=== PATIENT | male | born 1980 | race African-American/Black ===

== ENCOUNTER 2016-10-07 19:55 | Emergency (ER) | payer OTHER ==
[~2016-10-07] VITALS: Ht 177.8 cm; Wt 66.7 kg
[~2016-10-07 19:55] MED LIST: GENTAMYCIN OS; LORTAB 5/500 TA1 TA1 PO; VICODIN PO
[2016-10-07 20:14] LABS: BASOPHIL% 0.7 % (0-2.5); EOSINOPHIL% 0.4 % (0.0-7.0); HEMATOCRIT 39.9 % (38.0-50.0); HEMOGLOBIN 13.3 gm/dL (13.0-16.0); LYMPHOCYTE# 1.9 X10e3 (1.0-3.5); LYMPHOCYTE% 40.3 % (17.0-45.0); MEAN CELL VOLUME 86.9 FL (83-96); MEAN CORPUSCULAR HEMOGLOBIN 28.9 PG (28-34); MEAN CORPUSCULAR HGB CONC 33.3 g/dL (30-36); MEAN PLATELET VOLUME 7.7 FL (6.5-11.5); MONOCYTE# 0.4 X10e3 (0-1.0); MONOCYTE% 7.5 % (3.0-12.0); NEUTROPHIL# 2.5 X10e3 (1.5-7.1); NEUTROPHIL% 51.1 % (40-75); PLATELET COUNT 246 X10e3 (140-420); RED BLOOD COUNT 4.59 X10e (3.90-5.60); RED CELL DISTRIBUTION WIDTH 12.6 % (11.0-15.5); WHITE BLOOD COUNT 4.8 X10e3 (4.0-10.5)
[2016-10-07 20:19] LABS: DIFF IND NO
[2016-10-07 20:39] LABS: ALBUMIN SERUM 4.2 g/dL (3.5-5.0); ALKALINE PHOSPHATASE 46 U/L (32-92); ALT (SGPT) 25 U/L (10-40); AST (SGOT) 23 U/L (10-42); BILIRUBIN, DIRECT 0.1 mg/dL (0.0-0.2); BILIRUBIN,INDIRECT 1.1 mg/dL (0.0-0.9); BILIRUBIN,TOTAL 1.2 mg/dL (0.2-2.0); BLOOD UREA NITROGEN 15 mg/dL (9-23); BUN/CREATININE RATIO 13.63; CALCIUM SERUM 8.8 mg/dL (8.4-10.2); CARBON DIOXIDE 25 mmol/L (22-31); CHLORIDE 106 mmol/L (100-111); CREATININE SERUM 1.1 mg/dL (0.6-1.4); GLOM FILT RATE Estimated 100.3 mL/min (>60); GLUCOSE FASTING 224 mg/dL (70-110); POTASSIUM 3.6 mmol/L (3.5-5.1); PROTEIN TOTAL SERUM 7.4 g/dL (6.0-8.3); SALICYLATE <4.0 mg/dL; SODIUM 140 mmol/L (135-145)
[2016-10-07 20:40] LABS: ACETAMINOPHEN <10 ug/mL; ALCOHOL BLOOD <5 mg/dL (0)
[2016-10-07 21:06] LABS: AMPHETAMINE NEG (NEG); BARBITURATES NEG (NEG); BENZODIAZEPINES POS (NEG); COCAINE NEG (NEG); MARIJUANA POS (NEG); OPIATES POS (NEG); TRICYCLIC ANTIDEPRESSANTS NEG (NEG); U METHADONE NEG (NEG)
[2016-10-08 01:04] LABS: SALICYLATE <4.0 mg/dL
[2016-10-08 01:07] LABS: ACETAMINOPHEN <10 ug/mL
[2016-10-08] MEDS ORDERED: XANAX1 MG PO (18:36)
== END 2016-10-08 01:40 | disposition home or self-care (01) ==
LOC: CED 19:55
PROVIDERS: Emergency Medicine
DX: T42.4X1A Poisoning by benzodiazepines, accidental (unintentional), initial encounter (principal); T40.2X1A Poisoning by other opioids, accidental (unintentional), initial encounter
CPT/HCPCS: 36415; 51701; 80048; 80076; 80307; 82947; 85025; 96360; 96361; 99284; G0480

== ENCOUNTER 2016-10-08 10:48 | Inpatient (IN) | payer OTHER ==
[~2016-10-08] VITALS: Ht 172.7 cm; Wt 78.5 kg
--- NOTE | ~2016-10-08 | EKG ---
PATIENT: MARVIN TOLENTINO UNIT #: [id number] Ventricular Rate: 133 BPM Atrial Rate: 133 BPM P-R Interval: 170 ms QRS Duration: 80 ms Q-T Interval: 276 ms QTC Calculation(Bezet): 410 ms P [place] Level: 71 degrees Calculated R [place] Level: 95 degrees Calculated T [place] Level: 75 degrees Diagnosis Line: Sinus tachycardia Diagnosis Line: Rightward axis Diagnosis Line: Borderline ECG Diagnosis Line: When compared with ECG of 08-OCT-2016 11:22, Diagnosis Line: (unconfirmed) Diagnosis Line: Vent. rate has increased BY 52 BPM Diagnosis Line: Questionable change in QRS duration Diagnosis Line: Confirmed by SAVI GALLARDO MD ([id number]) on 10/12/2016 Diagnosis Line: 7:39:59 AM INTERPRETING MD: PAULINA CADET
--- NOTE | ~2016-10-08 | EKG ---
PATIENT: MARVIN TOLENTINO UNIT #: [id number] Ventricular Rate: 89 BPM Atrial Rate: 89 BPM P-R Interval: 206 ms QRS Duration: 80 ms Q-T Interval: 328 ms QTC Calculation(Bezet): 399 ms P [place]: 73 degrees Calculated R [place]: 91 degrees Calculated T [place]: 63 degrees Diagnosis Line: Normal sinus rhythm Diagnosis Line: Rightward axis Diagnosis Line: Nonspecific ST and T wave abnormality Diagnosis Line: Abnormal ECG Diagnosis Line: When compared with ECG of 08-OCT-2016 15:52, Diagnosis Line: (unconfirmed) Diagnosis Line: Vent. rate has decreased BY 44 BPM Diagnosis Line: Nonspecific T wave abnormality now evident in Diagnosis Line: Inferior leads Diagnosis Line: Nonspecific T wave abnormality, worse in Diagnosis Line: Anterolateral leads Diagnosis Line: Confirmed by SAVI GALLARDO MD ([id number]) on 10/12/2016 Diagnosis Line: 7:47:06 AM INTERPRETING MD: PAULINA CADET
--- NOTE | ~2016-10-08 | CR72 ---
[facility] A Service of [facility] RADIOLOGY TEXT RESULTS PATIENT: MARVIN TOLENTINO LOCATION: [address] : 81 UNIT #: [id number] AGE: [address]: CASH ISABEL V SEX: M ORDER DR: [id number] [facility] [address] [facility]. [place], [place] [address] [id number] I MR#: [id number] Acc #: [id number] NAME: MARVIN TOLENTINO : 1980 SEX: M STUDY DATE/TIME: 10/12/2016 2:36 UNIT: [facility] ROOM: [facility] STUDY DESCRIPTION: CR Chest Single View Portable Attending Physician: Cash Isabel M.D. Ordering Physician: Destiny Mcgowan M.D. Primary Care Physician: No Primary Care Physician MEDICAL IMAGING REPORT This report is preliminary unless electronic signature is present EXAMINATION AP portable chest. DATE 10/12/2016 at 02:36. HISTORY Overdose, respiratory failure requiring ventilator. Symptoms began 10/08/2016. Resuscitated arrest. COMPARISON AP portable chest, 10/11/2016. FINDINGS ET tube, right IJ central line, left neck approach dual-lumen catheter; each appear unchanged. No visible pneumothorax. Dense right uxr-hd-jyqva lung zone airspace disease and left infrahilar infiltrates, not thought to be significantly changed. There may be small layering right pleural effusion as well. No visible pneumothorax. Heart size is stable. IMPRESSION 1. Dense right rui-do-sjszk lung zone and left infrahilar airspace disease with probable small layering right pleural effusion. 2. Supporting lines and tubes are stable. 3. No significant change from 10/11/2016. Dictated by... Vivienne Mack M.D. THIS IS AN ELECTRONICALLY VERIFIED REPORT Vivienne Mack M.D. at 10/12/2016 9:55 PM LLH/luis [facility] A Service of [facility] RADIOLOGY TEXT RESULTS PATIENT: MARVIN TOLENTINO LOCATION: [facility]IC[facility]3-23 : 81 UNIT #: [id number] AGE: [address]: CASH ISABEL V SEX: M ORDER DR: TD: 10/12/2016 06:16 JOB #: [id number] MEDICAL IMAGING REPORT Page 1 of 1 COPY
--- NOTE | ~2016-10-08 | FU ---
[facility] Nutrition Therapy DATE: 10/12/16 Patient: MARVIN TOLENTINO Physician: [email or web address] Address: [address] Room/Bed: [address], Zip: [place] [address] Admit Date: 10/08/16 Date of : [birth year] Height: 5 8 Weight: 180 82 NUTRITION MONITORING/FOLLOW-UP: Reason: Nutrition follow up Anthropometrics: Ht: 5'8" Wt: 78 kg BMI: 26.1 Wt 8/2: 82 kg Labs: BUN 5 Alb 2.0 AST 349 ALT 593 Phos 1.8 Meds: NaCl, calcium gluconate, sodium phosphate, MgSO4, KCl, bumex, protonix, D5%, sodium bicarbonate, levophed I&O's: 8127/7170, last BM 10/09 Skin: No breakdown noted Edema: Generalized- BUE/ hands/ hips/ trunk/ penis/ scrotum 2+ pedal/ ankle Estimated Nutrition Needs: 4443-4036 kcals (25-30 kcals/kg) 117-156 grams protein (1.5-2.0 grams/kg) Protein needs increased d/t pt now on CRRT Assessment: Chart reviewed, events noted. Pt remains intubated on pressors in the ICU, now on CRRT. Pt will likely have a brain perfusion scan today per RN report. No plans for nutrition support at this time; however, RN reports that DHT may be placed today. Please see recommendations below. Dx: Inadequate protein-energy intake RT ventilator dependence, clinical condition AEB NPO status- ACTIVE Intervention: 1. Enteral nutrition once medically feasible Monitoring, Evaluation and Goals: 1. Enteral nutrition; initiate, provide >80% goal volume- NOT MET 2. Improve labs; Na+, K+, Cl-, BUN, creat, AST, ALT- IMPROVED/ IN PROGRESS NEW GOALS: 1. Improve labs; AST, ALT, Phos 2. Weight/ Fluid status; monitor edema, preserve lean body mass [facility] Nutrition Therapy DATE: 10/12/16 Patient: MARVIN TOLENTINO Physician: [email or web address] Address: [address] [facility] Room/Bed: [address], Zip: [place] [address] Admit Date: 10/08/16 Date of : [birth year] Height: 5 8 Weight: 180 82 Recommendations: 1. Replete phos to WNL PRN. 2. Once medically feasible and if deemed appropriate per MD, consider initiating enteral nutrition with Jevity 1.5 @ 25 mL/hr + 30 mL Prostat TID. Increase by 10 mL q 8 hrs as tolerated to goal of 55 mL/hr + 30 mL Prostat TID to provide: 2280 kcals/ 129 grams protein/ 1003 mL free H20 Status: Pt is at moderate-severe nutritional risk. RD will continue to follow hospital course. Respectfully, KRISTY LILLY RD, LD [facility] cc: client file
--- NOTE | ~2016-10-08 | CR72 ---
[facility] A Service of [facility] & [facility] RADIOLOGY TEXT RESULTS PATIENT: MARVIN TOLENTINO LOCATION: [address] : 81 UNIT #: [id number] AGE: [address]: CASH ISABEL V SEX: M ORDER DR: [id number] [facility] [address] [facility]. [place], [place] [address] [id number] I MR#: [id number] Acc #: [id number] NAME: MARVIN TOLENTINO : 1980 SEX: M STUDY DATE/TIME: 10/11/2016 09:28 UNIT: [facility] ROOM: [facility] STUDY DESCRIPTION: CR Chest Single View Portable Attending Physician: Cash Isabel M.D. Ordering Physician: Destiny Mcgowan M.D. Primary Care Physician: Primary Care Physician No MEDICAL IMAGING REPORT This report is preliminary unless electronic signature is present EXAM Chest 10/11/2016 0928 hours HISTORY 36-year-old with history with overdose, resuscitated post arrest with respiratory failure requiring ventilation. Followup. Episode occurred 10/08/2016. COMPARISON 10/10/2016. FINDINGS Portable upright chest demonstrates bilateral airspace changes right greater than left perhaps slightly improved on the left. There is increasing density at the right base which could represent new pleural fluid. There is an endotracheal tube with tip 5 cm above the jurgen. Right IJ catheter tip is in the SVC. There is a new left central dual-lumen catheter with tips in the SVC just above the right atrium. There is no pneumothorax. IMPRESSION 1. Stable endotracheal tube and right IJ catheter. There is a new left central venous dual-lumen catheter with tips in the SVC above the right atrium. There is no pneumothorax. 2. There is persistent airspace change right greater than left lung with increasing right basilar density which could represent worsening airspace density or developing pleural fluid. This is new from 10/10/2016. STAT * RESULT [facility] A Service of [facility] & [facility] RADIOLOGY TEXT RESULTS PATIENT: MARVIN TOLENTINO LOCATION: CIC3 CICCU3-23 : 81 UNIT #: [id number] AGE: [address]: CHALOCASH V SEX: M ORDER DR: Dictated by... Laya Jacinto M.D. THIS IS AN ELECTRONICALLY VERIFIED REPORT Laya Jacinto M.D. at 10/11/2016 2:31 PM LOI/braydon TD: 10/11/2016 10:15 JOB #: [id number] MEDICAL IMAGING REPORT Page 1 of 1 COPY
--- NOTE | ~2016-10-08 | CR72 ---
[facility] A Service of [facility] RADIOLOGY TEXT RESULTS PATIENT: MARVIN TOLENTINO LOCATION: [address]23 : 81 UNIT #: [id number] AGE: [address]: ELLE MCGOWAN MD SEX: M ORDER DR: [id number] [facility] [address] [facility]. [place], [place] [address] [id number] I MR#: [id number] Acc #: [id number] NAME: MARVIN TOLENTINO : 1980 SEX: M STUDY DATE/TIME: 10/08/2016 15:07 UNIT: [facility] ROOM: [facility] STUDY DESCRIPTION: CR Chest Single View Portable Attending Physician: Elle Mcgowan M.D. Ordering Physician: Suman Anthony M.D. Primary Care Physician: No Primary Care Physician MEDICAL IMAGING REPORT This report is preliminary unless electronic signature is present EXAM Frontal chest 10/08/2016. INDICATIONS 36-year-old male with resuscitated arrest, short of air, unresponsive today. Drug use. Heroin overdose last night. COMPARISON Frontal chest compared with 1115 hours. FINDINGS ET tube tip in good position above the ujrgen. There is a left-sided central line at the mid SVC level. No pneumothorax. Extensive interstitial and alveolar infiltrates throughout the right lung and, to a lesser extent, the perihilar left lung. Findings are stable to slightly worse, particularly on the left. There may be a trace amount of right-sided pleural fluid. IMPRESSION 1. Tubes and lines in satisfactory position. No pneumothorax. 2. Stable to interval worsening appearance of the chest, as described. Dictated by... Jalen Mccullough M.D. THIS IS AN ELECTRONICALLY VERIFIED REPORT Jalen Mccullough M.D. at 10/09/2016 2:22 PM Maddie TD: 10/09/2016 09:59 JOB #: [id number] [facility] A Service of [facility] RADIOLOGY TEXT RESULTS PATIENT: MARVIN TOLENTINO LOCATION: [address] : 81 UNIT #: [id number] AGE: [address]: ELLE MCGOWAN MD SEX: M ORDER DR: MEDICAL IMAGING REPORT Page 1 of 1 COPY
--- NOTE | ~2016-10-08 | CT71 ---
[facility] A Service of [facility] RADIOLOGY TEXT RESULTS PATIENT: MARVIN TOLENTINO [facility] : 81 UNIT #: [id number] AGE: [address]: ELLE MCGOWAN MD SEX: M ORDER DR: [id number] [facility] [address] [facility]. [place], [place] [address] [id number] I MR#: [id number] Acc #: [id number] NAME: MARVIN TOLENTINO : 1980 SEX: M STUDY DATE/TIME: 10/08/2016 12:22 UNIT: [facility] ROOM: [facility] STUDY DESCRIPTION: CT Head Wo Contrast Attending Physician: Elle Mcgowan M.D. Ordering Physician: Suman [facility] Raj Anthony Primary Care Physician: Primary Care Physician No MEDICAL IMAGING REPORT This report is preliminary unless electronic signature is present EXAM CT scan of the brain without contrast HISTORY Unresponsive after being resuscitated yesterday and still unresponsive. TECHNIQUE This CT exam was performed with one or more of the following radiation dose reduction techniques: automatic control, adjustment of mA and/or kV according to patient size, and iterative reconstruction. FINDINGS Unenhanced images were obtained through the brain. There is generalized brain edema with loss of robles-white interface and compression of the fourth ventricle. The lateral ventricles are still visible. There is no extraaxial fluid collection or mass. There is no shift of the midline structures. IMPRESSION The findings are consistent with diffuse brain anoxia with loss of robles white interface and mild diffuse cerebral edema. No hemorrhage is identified. Dictated by... Ronan Huizar M.D. THIS IS AN ELECTRONICALLY VERIFIED REPORT Ronan Huizar M.D. at 10/09/2016 9:36 PM FEL/rnr [facility] A Service of [facility] RADIOLOGY TEXT RESULTS PATIENT: MARVIN TOLENTINO LOCATION: [facility] : 81 UNIT #: [id number] AGE: [address]: ELLE MCGOWAN MD SEX: M ORDER DR: TD: 10/09/2016 03:28 JOB #: [id number] MEDICAL IMAGING REPORT Page 1 of 1 COPY
--- NOTE | ~2016-10-08 | CO ---
Unit #: [id number] #: [id number] Patient: MARVIN TOLENTINO [id number] [facility] [address] [facility]. [place], [place] [address] [id number] I MR#: [id number] NAME: MARVIN TOLENTINO ROOM: [facility]3 Age: 36 Sex: M Admission Date: 10/08/2016 : 1980 Attending Physician: Shad Mcgowan M.D. Consultation Date: 10/08/2016 CONSULTATION REPORT PRIMARY CARE PHYSICIAN Not listed. REASON FOR CONSULTATION Anoxic brain injury. PATIENT IDENTIFICATION This is a 36-year-old male, evaluated in ER T3 at [facility]. SOURCE OF INFORMATION Obtained from the medical record. HISTORY OF PRESENT ILLNESS This is a 36-year-old male with past medical history of drug use, who presents to [facility] with altered mental status and unresponsiveness, status post resuscitated arrest. Urine tox screen positive for benzodiazepines, marijuana, and opiates. The patient presented to [facility] ER initially on 10/07/2016 after being found unresponsive and was treated for overdose at that time. Urine tox screen was positive for benzodiazepines, marijuana, and opiates. The patient appears to have been discharged via wheelchair, verbalizing and understanding of discharge instructions at 01:40 this morning. Per family stated to EMS, the patient possibly took some Xanax during the night, went to the bedroom with audibly snoring. Apparently, when the family no longer heard the patient's snoring, they checked his pulse and the patient was pulseless. Bystander CPR was initiated and EMS was called, and they were on the scene within 6 minutes. The patient arrived with EMS, apparently resuscitated at that time and intubated. He has not received any sedation. His urine tox screen is positive for benzodiazepines, opiates, and marijuana on arrival. His troponin is elevated. Cardiology was asked to evaluate. He is intubated. He is not sedated. He is on a Levophed drip. His vital signs are unstable. He is not overbreathing the vent. He is not responding to noxious stimuli. He has no oculocephalic reflex. Pupils are fixed and dilated. He has no corneal reflex and again no sedation has been administered. He is tachycardic and again is requiring Levophed drip at this time. Head CT was done in the ER after he was stabilized, and imaging has been reviewed and discussed with Dr. Pizano. Results as per Radiology voice clip include findings concerning for anoxic injury with diffuse loss of robles-white matter interface and some cerebral edema. PAST MEDICAL HISTORY Not known. Unit #: [id number] #: [id number] Patient: MARVIN TOLENTINO PAST SURGICAL HISTORY Unknown. ALLERGIES He has no known drug allergies. HOME MEDICATIONS Unknown. FAMILY HISTORY Unknown. SOCIAL HISTORY Not fully known. Again, his urine tox is positive for benzodiazepines, marijuana, and opiates. REVIEW OF SYSTEMS Unable to obtain from the patient given his mental status and clinical condition. PHYSICAL EXAMINATION VITAL SIGNS: Temperature 91.4, he is on a Oneyda Hugger. Pulse 107, it is up to 122 when I was in the room. Respirations are 28, which is what his vent settings are at, he is not overbreathing the vent. Blood pressure is 124/82, on a Levophed drip. Oxygen saturation 100%, height 5 feet 8 inches, weight 145 pounds, and BMI 22. NEUROLOGIC: The patient is intubated. He is not sedated. He has no response to noxious stimuli. He has no eye signs. He is not overbreathing the vent. He is not sedated. Cranial nerve exam; he has negative oculocephalic reflex, negative corneal. Pupils are fixed and dilated. No asymmetry seen. Unable to assess sensation of face and scalp. Unable to assess hearing, tongue, uvula or palate, head turning or shoulder shrug as the patient is unresponsive. Neck is supple. Motor exam; the patient is unresponsive to noxious stimuli. Sensory exam; the patient is unresponsive to noxious stimuli. No tremors or myoclonus seen. Gait and Romberg deferred. Reflexes; unable to elicit. Coordination; unable to assess. DIAGNOSTIC STUDIES LABORATORY RESULTS: Please see above labs. PT 17, INR 1.6, and PTT 43.5. PH of 7.297, pCO2 of 34.4, pO2 of 59.6, bicarb is 16.8, and O2 saturation 89.2%. White blood cell count 4.8, hemoglobin 11.4, hematocrit 34.6, and platelet count 164. AST 765, ALT 1311, and alkaline phosphatase 52. Total protein 5.3 and albumin 2.8. Acetaminophen level less than 10. Salicylate level less than 4. Alcohol level less than 5. Urine tox screen as discussed above. Lactic acid 11.3. Troponin 0.13. Glucose 171 on arrival. IMPRESSION 1. Encephalopathy, likely anoxic. 2. Acute respiratory failure. 3. Elevated troponin. Cardiology following. 4. Status post resuscitated arrest. 5. Polysubstance abuse. 6. Aspiration pneumonia. PLAN Reviewed imaging and discussed with Dr. Pizano at length. Recommend Unit #: [id number] #: [id number] Patient: MARVIN TOLENTINO close monitoring. The patient is being admitted to the ICU. Clinically concerned given exam and CT findings, and family is aware of that. Will need continued neurologic evaluation and discussion with family for further care and decision making. Direct in-person neurologist not available at this facility at this time. Consider transfer if needed and we will leave that up to the admitting service. Please call for any questions or issues. Discussed with Dr. Swift as well as the nurse caring for the patient. Dictated by... Alanis Gardiner A.P.R.N. for Narciso Carrillo/castro TD: 10/08/2016 17:52 JOB #: [id number] CONSULTATION REPORT Page 1 of 1 X Alanis Gardiner EMERGENCY MAN X CONSULTATION REPORT
--- NOTE | ~2016-10-08 | EKG ---
PATIENT: MARVIN TOLENTINO UNIT #: [id number] Ventricular Rate: 109 BPM Atrial Rate: 109 BPM P-R Interval: 176 ms QRS Duration: 78 ms Q-T Interval: 350 ms QTC Calculation(Bezet): 471 ms P Secor: 74 degrees Calculated R Secor: 12 degrees Calculated T Secor: 61 degrees Diagnosis Line: Sinus tachycardia Diagnosis Line: Indeterminate axis Diagnosis Line: Low voltage QRS Diagnosis Line: Borderline ECG Diagnosis Line: When compared with ECG of 09-OCT-2016 06:29, Diagnosis Line: (unconfirmed) Diagnosis Line: Nonspecific T wave abnormality no longer evident Diagnosis Line: in Inferior leads Diagnosis Line: Nonspecific T wave abnormality, improved in Diagnosis Line: Anterolateral leads Diagnosis Line: QT has lengthened Diagnosis Line: Confirmed by SAVI GALLARDO MD ([id number]) on 10/12/2016 Diagnosis Line: 7:34:05 PM INTERPRETING MD: PAULINA CADET
--- NOTE | ~2016-10-08 | OR ---
Unit #: [id number] #: [id number] Patient: MARVIN TOLENTINO [id number] [address] [address] [id number] I MR#: [id number] NAME: MARVIN TOLENTINO ROOM: [facility] Date of Procedure: 10/09/2016 Admission Date: 10/08/2016 Surgeon: Jarret Swift M.D. : 1980 Attending Physician: Shad Mcgowan M.D. Primary Care Physician: No Primary Care Physician PROCEDURE OPERATIVE NOTE PROCEDURE PERFORMED Left subclavian central venous catheter insertion. INDICATIONS Shock. PREPROCEDURE DIAGNOSIS Shock. POSTPROCEDURE DIAGNOSIS Shock. DETAIL OF PROCEDURE After placing patient in a proper position, left side of the chest was prepped with ChloraPrep in a sterile fashion. With modified Seldinger technique, a triple lumen central venous catheter inserted in the left subclavian vein. Guidewire was removed in total. All three ports flushed and working. Line was secured with two interrupted sutures in place. Sterile dressing was applied. Postprocedure chest x-ray was ordered and no complications happened. The patient tolerated the procedure very well. Dictated by... Narciso Schrader/deisy TD: 10/09/2016 10:55 JOB #: [id number] PROCEDURE OPERATIVE NOTE Page 1 of 1 X Jarret Swift MD X PROCEDURE OPERATIVE NOTE
--- NOTE | ~2016-10-08 | CR72 ---
[facility] A Service of [facility] RADIOLOGY TEXT RESULTS PATIENT: MARVIN TOLENTINO LOCATION: [facility] : [birth year] UNIT #: [id number] AGE: [address]: CASH ISABEL V SEX: M ORDER DR: [id number] [facility] [address] [facility]. [place], [place] [address] [id number] I MR#: [id number] Acc #: [id number] NAME: MARVIN TOLENTINO : 1980 SEX: M STUDY DATE/TIME: 10/13/2016 4:53 UNIT: [facility] ROOM: [facility] STUDY DESCRIPTION: CR Chest Single View Portable Attending Physician: Cash Isabel M.D. Ordering Physician: Destiny Mcgowan M.D. Primary Care Physician: Primary Care Physician No MEDICAL IMAGING REPORT This report is preliminary unless electronic signature is present EXAM AP portable chest 10/13/2016 HISTORY Resuscitated arrest status post overdose. Respiratory failure on the ventilator. Symptoms began 10/08/2016. COMPARISON AP portable chest 10/12/2016. FINDINGS ET tube remains in the mid thoracic trachea. Right IJ central line and left subclavian approach central line appear stable. Airspace disease changes are present throughout both lungs, right greater left. There appears to be worsening airspace disease particularly within the right upper lobe compared to prior study. Suspected small layering right pleural effusion. IMPRESSION 1. Right greater than left diffuse airspace disease. The airspace disease appears slightly worse in the right upper lobe compared to the prior study. Correlate clinically for worsening pneumonia. 2. Stable appearance of the supporting lines and tubes. No visible pneumothorax. Dictated by... Vivienne Mack M.D. ODALYS/braydon TD: 10/13/2016 06:33 [facility] A Service [facility] RADIOLOGY TEXT RESULTS PATIENT: MARVIN TOLENTINO LOCATION: [facility] : [birth year] UNIT #: [id number] AGE: [address]: CASH ISABEL V SEX: M ORDER DR: JOB #: [id number] MEDICAL IMAGING REPORT Page 1 of 1
--- NOTE | ~2016-10-08 | EKG ---
PATIENT: MARVIN TOLENTINO UNIT #: [id number] Ventricular Rate: 81 BPM Atrial Rate: 81 BPM P-R Interval: 186 ms QRS Duration: 100 ms Q-T Interval: 456 ms QTC Calculation(Bezet): 529 ms P [place]: 66 degrees Calculated R [place]: 30 degrees Calculated T [place]: 55 degrees Diagnosis Line: Normal sinus rhythm Diagnosis Line: Low voltage QRS Diagnosis Line: Prolonged QT Diagnosis Line: Abnormal ECG Diagnosis Line: No previous ECGs available Diagnosis Line: Confirmed by DION RASHEED MD ([id number]) on Diagnosis Line: 10/10/2016 8:55:39 AM INTERPRETING MD: WILI CADET
--- NOTE | ~2016-10-08 | CR72 ---
[facility] A Service of [facility] RADIOLOGY TEXT RESULTS PATIENT: MARVIN TOLENTINO LOCATION: [facility] : [birth year] UNIT #: [id number] AGE: [address]: ELLE MCGOWAN MD SEX: M ORDER DR: [id number] [facility] [address] [place], [place] [address] [id number] I MR#: [id number] Acc #: [id number] NAME: MARVIN TOLENTINO : 1980 SEX: M STUDY DATE/TIME: 10/08/2016 11:15 UNIT: [facility] ROOM: [facility] STUDY DESCRIPTION: CR Chest Single View Portable Attending Physician: Elle Mcgowan M.D. Ordering Physician: Suman [facility] Raj Anthony Primary Care Physician: Primary Care Physician No MEDICAL IMAGING REPORT This report is preliminary unless electronic signature is present EXAM Portable chest HISTORY Patient suffered a cardiac arrest and was resuscitated. Endotracheal tube was placed. Evaluate status of lungs and endotracheal tube position. FINDINGS This supine view of the chest shows the endotracheal tube is in good position with the tip 2 cm above the jurgen. There may be some patchy infiltrate in the left lower lobe but otherwise the left lung is clear. There is mild diffuse increased density throughout the right lung suggesting infiltrate and possible aspiration. The bones are normal. IMPRESSION 1. A possible patchy infiltrate left lower lobe. 2. Diffuse increased density throughout the right lung which is faint but could be due to aspiration. 3. The endotracheal tube is in good position. Dictated by... Ronan Huizar M.D. THIS IS AN ELECTRONICALLY VERIFIED REPORT Ronan Huizar M.D. at 10/10/2016 7:22 AM SUKHI/rnr TD: 10/09/2016 01:04 JOB #: [id number] [facility] A Service of [facility] RADIOLOGY TEXT RESULTS PATIENT: MARVIN TOLENTINO LOCATION: [facility] : [birth year] UNIT #: [id number] AGE: [address]: ELLE MCGOWAN MD SEX: M ORDER DR: MEDICAL IMAGING REPORT Page 1 of 1 COPY
--- NOTE | ~2016-10-08 | CR72 ---
[facility] A Service of [facility] RADIOLOGY TEXT RESULTS PATIENT: MARVIN TOLENTINO LOCATION: [address] : 81 UNIT #: [id number] AGE: [address]: CASH ISABEL V SEX: M ORDER DR: [id number] [facility] [address] [facility]. [place], [place] [address] [id number] I MR#: [id number] Acc #: [id number] NAME: MARVIN TOLENTINO : 1980 SEX: M STUDY DATE/TIME: 10/15/2016 4:36 UNIT: [facility] ROOM: [facility] STUDY DESCRIPTION: CR Chest Single View Portable Attending Physician: Cash Isabel M.D. Ordering Physician: Destiny Mcgowan M.D. Primary Care Physician: Primary Care Physician No MEDICAL IMAGING REPORT This report is preliminary unless electronic signature is present EXAM Chest x-ray 10/15/2016 HISTORY Respiratory failure. Patient on ventilator. Follow up cardiopulmonary status and support equipment position. TECHNIQUE AP portable chest x-ray. FINDINGS The exam shows no change since yesterday. Moderately dense diffuse interstitial and alveolar pulmonary opacity throughout both lungs. Heart size normal. Endotracheal tube, left subclavian dialysis catheter and right IJ central venous catheter remain in good position. IMPRESSION Stable portable chest radiograph, unchanged since yesterday. Dictated by... Bill Moore M.D. THIS IS AN ELECTRONICALLY VERIFIED REPORT Bill Moore M.D. at 10/15/2016 9:59 PM ALEXEI/braydon TD: 10/15/2016 07:49 JOB #: [id number] MEDICAL IMAGING REPORT Page 1 of 1 COPY
--- NOTE | ~2016-10-08 | A ---
[facility] Nutrition Therapy DATE: 10/10/16 Patient: MARVIN TOLENTINO Physician: FEI Address: [facility] Room/Bed: [address], Zip: [place] [address] Admit Date: 10/08/16 Date of : [birth year] Height: 5 8 Weight: 171 78 NUTRITIONAL ASSESSMENT: REASON: NPO status in ICU 36 yo male admitted for Heroin OD s/p resuscitated arrest PMH: Drug abuse, no other significant PMH known Anthropometrics: Ht: 5'8" Wt: 78 kg BMI: 26.1 Labs: Na+ 146 K+ 2.0 Cl- 114 BUN 31 Creat 3.7 Ca++ 6.8 Alb 2.0 AST 457 ALT 686 GFR 23.1 Meds: Levophed, protonix, D5% + sodium bicarbonate, MgSO4, KCl I/O & Bowel function: 8063/1765, last BM 10/09 Skin Integrity: Scrotal edema Edema: None noted Estimated Nutrition Needs: 4700-8523 kcals (25-30 kcals/kg) 78-101 grams protein (1.0-1.3 grams/kg) Diet: NPO Assessment: Chart reviewed, events noted. 36 yo male admitted for resuscitated arrest after heroin OD. Pt was positive for benzos, marijuana and opiates. SILVANA and septic shoock noted and anoxic injury is possible per MD note. Per RN report, the pt is on two pressors. No plans for nutrition support at this time, and the pt does not have enteral access. No family in room to provide nutritional history. Please see recommendations below. Dx: Inadequate protein-energy intake RT ventilator dependence, clinical condition AEB NPO status. Intervention: 1. NPO 2. Enteral nutrition once medically feasible Monitoring, Evaluation and Goals: 1. Enteral nutrition; initiate once appropriate 2. Improve labs; electrolytes, BUN, creat, GFR, AST, ALT [facility] Nutrition Therapy DATE: 10/10/16 Patient: MARVIN TOLENTINO Physician: FEI Address: [address] [facility] Room/Bed: [address], Zip: [place] [address] Admit Date: 10/08/16 Date of : [birth year] Height: 5 8 Weight: 171 78 Recommendations: 1. Once medically feasible when the pt is hemodynamically stable, obtain enteral access and initiate enteral nutrition with Jevity 1.5 @ 25 mL/hr. Increase by 10 mL q 8 hrs as tolerated to goal of 55 mL/hr to provide: 1980 kcals/ 84 grams protein/ 1003 mL free H20 2. If enteral nutrition is initiated, add 250 mL free H20 flushes q 6 hrs or per MD orders. Hypernatremia noted. 3. Replete electrolytes to WNL PRN (K+ low). Pt is at moderate-severe nutritional risk. RD will follow hospital course per protocol. Respectfully, KRISTY LILLY RD, LD Food and Nutritional Services [facility] cc: client file
--- NOTE | ~2016-10-08 | OR ---
Unit #: [id number] #: [id number] Patient: MARVIN TOLENTINO [id number] [facility]. [place], [place] [address] [id number] I MR#: [id number] NAME: MARVIN TOLENTINO ROOM: [facility] Date of Procedure: 10/11/2016 Admission Date: 10/08/2016 Surgeon: Suzan Mcgowan M.D. : 1980 Attending Physician: Esteban Zamudio M.D. Primary Care Physician: Jazmin Primary Care Physician PROCEDURE OPERATIVE NOTE PROCEDURE Left subclavian hemodialysis catheter placement. INDICATION FOR PROCEDURE Hyperkalemia and renal failure. PRE-OP DIAGNOSIS Status post cardiac arrest. DESCRIPTION OF THE PROCEDURE Informed consent was obtained from the family after explaining the benefits and risks of this procedure. The patient was prepped and positioned in the proper way. Then, his left subclavian area was cleaned with chlorhexidine, and then a sterile body drape was applied. Then, a needle was inserted in the left subclavian area until blood flow was obtained. Then, guidewire was inserted and the needle was removed. Then, dilators x2 were used to create tract for the catheter, which was inserted over the guidewire, and the guidewire was removed. The catheter was sutured in place and flushed appropriately. STAT chest x-ray confirmed placement with no immediate complication. Dictated by... Suzan Mcgowan M.D. EA/robin TD: 10/11/2016 16:27 JOB #: [id number] PROCEDURE OPERATIVE NOTE Page 1 of 1 X SUZAN FRENCH MD PROCEDURE OPERATIVE NOTE
--- NOTE | ~2016-10-08 | CO ---
Unit #: [id number] #: [id number] Patient: MARVIN TOLENTINO [id number] [address] [address] [id number] I MR#: [id number] NAME: MARVIN TOLENTINO ROOM: [facility] Age: 36 Sex: M Admission Date: 10/08/2016 : 1980 Attending Physician: Shad Mcgowan M.D. Primary Care Physician: No Primary Care Physician Consultation Date: 10/08/2016 CONSULTATION REPORT REASON FOR CONSULTATION Cardiac arrest. CHIEF COMPLAINT Cardiac arrest. HISTORY OF PRESENT ILLNESS A 36-year-old male with past medical history of drug abuse, presented to the emergency room after cardiac arrest and patient took 10 Xanax and swallowed a pack of heroin. He was seen by the emergency room on September 29 and was discharged, came back again with cardiac arrest. Patient currently intubated and unresponsive, not responding. Pupils are fixed, dilated. PAST MEDICAL HISTORY Drug abuse. PAST SURGICAL HISTORY None. MEDICATIONS None. FAMILY HISTORY Unknown. PHYSICAL EXAMINATION VITAL SIGNS: Temperature 91, pulse 87, respirations 22, blood pressure 110/70. Currently on ventilator. CARDIOVASCULAR: S1 plus S2. RESPIRATORY: Bilateral air entry. Bilateral mild rhonchi. GASTROINTESTINAL: Nontender, soft. Bowel sounds positive. EXTREMITIES: No edema. DIAGNOSTIC STUDIES Reviewed. ASSESSMENT 1. Acute respiratory failure. 2. Anoxic brain injury. 3. Severe acute respiratory distress syndrome. 4. Septic shock. 5. Critically-ill patient. 6. Drug overdose. Unit #: [id number] #: [id number] Patient: MARVIN TOLENTINO PLAN Plan is to continue patient's ventilator support, broad-spectrum IV antibiotics, IV fluids, and pressors. Patient will be closely monitored. Prognosis is extremely poor. Discussed with the patient and family at the bedside. Dictated by... Narciso Schrader/deisy TD: 10/09/2016 10:45 JOB #: [id number] CONSULTATION REPORT Page 1 of 1 X Jarret Swift MD X CONSULTATION REPORT
--- NOTE | ~2016-10-08 | CR72 ---
[facility] A Service of [facility] RADIOLOGY TEXT RESULTS PATIENT: MARVIN TOLENTINO LOCATION: [facility] : 81 UNIT #: [id number] AGE: [address]: ELLE MCGOWAN MD SEX: M ORDER DR: [id number] [facility] [address] [facility]. [place], [place] [address] [id number] I MR#: [id number] Acc #: [id number] NAME: MARVIN TOLENTINO : 1980 SEX: M STUDY DATE/TIME: 10/09/2016 3:16 UNIT: [facility] ROOM: [facility] STUDY DESCRIPTION: CR Chest Single View Portable Attending Physician: Elle Mcgowan M.D. Ordering Physician: Ed William Maynard M.D. Primary Care Physician: Primary Care Physician No MEDICAL IMAGING REPORT This report is preliminary unless electronic signature is present EXAM AP portable chest DATE 10/09/2016 at 03:16 HISTORY Respiratory failure today on the ventilator. Resuscitated arrest, overdose. Symptoms began 10/08/2016. COMPARISON AP portable chest 10/08/2016. FINDINGS Multifocal, somewhat patchy alveolar disease changes are seen throughout both lungs, which may represent changes of pneumonia or aspiration. Airspace disease appears slightly worse within the right lower lobe compared to prior. Normal heart size. ET tube remains in the mid thoracic trachea. Right IJ central line remains at the cavoatrial junction. No visible pneumothorax. IMPRESSION 1. Diffuse patchy alveolar disease within both lungs, which may represent changes of pneumonia or aspiration, with slight worsening aeration in the right lower lobe compared to prior. 2. Support lines and tubes are stable. Dictated by... Vivienne Mack M.D. THIS IS AN ELECTRONICALLY VERIFIED REPORT Vivienne Mack M.D. at 10/09/2016 9:39 PM [facility] A Service of [facility] RADIOLOGY TEXT RESULTS PATIENT: MARVIN TOLENTINO LOCATION: [facility] : 81 UNIT #: [id number] AGE: [address]: ELLE MCGOWAN MD SEX: M ORDER DR: ODALYS/javier TD: 10/09/2016 18:40 JOB #: [id number] MEDICAL IMAGING REPORT Page 1 of 1 COPY
--- NOTE | ~2016-10-08 | CR72 ---
[facility] A Service of [facility] RADIOLOGY TEXT RESULTS PATIENT: MARVIN TOLENTINO LOCATION: [address] : [birth year] UNIT #: [id number] AGE: [address]: CASH ISABEL V SEX: M ORDER DR: [id number] [place] [address] [facility]. [place], [place] [address] [id number] I MR#: [id number] Acc #: [id number] NAME: MARVIN TOLENTINO : 1980 SEX: M STUDY DATE/TIME: 10/10/2016 3:39 UNIT: [facility] ROOM: [facility] STUDY DESCRIPTION: CR Chest Single View Portable Attending Physician: Cash Isabel M.D. Ordering Physician: Jarret Swift M.D. Primary Care Physician: Primary Care Physician No MEDICAL IMAGING REPORT This report is preliminary unless electronic signature is present EXAM AP portable chest DATE: 10/10/2016 03:39 HISTORY Overdose. Respiratory failure today on a ventilator. Symptoms began 10/08/2016. Resuscitated from cardiopulmonary arrest. COMPARISON AP portable chest 10/09/2016 FINDINGS Well defined alveolar disease changes seen throughout both lungs, greatest in the right midlung and medial left lung base. Slight improved aeration, thought to be present within the lungs compared to prior study, particularly in the left lower lobe. ET tube tip projects 4.6 meters above the jurgen. Right IJ central line extends to the cavoatrial junction. No visible pneumothorax. No pleural effusion. IMPRESSION 1. Diffuse and somewhat patchy alveolar disease changes throughout both lungs may represent changes of pneumonia or aspiration, with improved aeration bilaterally since 10/09/2016. Dictated by... Vivienne Mack M.D. THIS IS AN ELECTRONICALLY VERIFIED REPORT Vivienne Mack M.D. at 10/10/2016 9:59 PM [facility]/melody TD: 10/10/2016 11:43 [facility] A Service of [facility] RADIOLOGY TEXT RESULTS PATIENT: MARVIN TOLENTINO LOCATION: [address] : [birth year] UNIT #: [id number] AGE: [address]: CASH ISABEL V SEX: M ORDER DR: JOB #: [id number] MEDICAL IMAGING REPORT Page 1 of 1 COPY
--- NOTE | ~2016-10-08 | CO ---
Unit #: [id number] #: [id number] Patient: MARVIN BECK [id number] [facility]. [place], [place] [address] [id number] I MR#: [id number] NAME: MARVIN BECK ROOM: [facility] Age: 36 Sex: M Admission Date: 10/08/2016 : 1980 Attending Physician: Esteban Zamudio M.D. Primary Care Physician: Primary Care Physician No Consultation Date: 10/10/2016 CONSULTATION REPORT REASON FOR CONSULT Acute renal failure and hypokalemia. Thank you very much for asking me to see this patient in consultation. HISTORY OF PRESENT ILLNESS Mr. Beck is a 36-year-old male, who presented to the hospital here again on 10/08/2016. He apparently was in and out of the hospital prior to admission the day before, where he took some Xanax and apparently one pack of heroin. He was discharged home. He went home, apparently presented back here after being found unresponsive at home. There is some story that he swallowed 7 or 9 bags of heroin. CPR was done at home by his family and subsequently presented here. He is now on the vent with unresponsiveness. He was noted to have an increased BUN and creatinine of 31 and 3.7 today. The lowest was 1.1. Also when he was in initially, he had a potassium of 3.6; upon his repeat presentation, it was 4.6, but it went all the way down to 1.5 and as low as 1.3 and it is up to 2.0 today. The patient is again unresponsive, on the vent. PAST MEDICAL HISTORY History of drug abuse. No other past medical history. ALLERGIES No known drug allergies. SOCIAL HISTORY Positive drug abuse. Unknown about alcohol or smoking at this time. REVIEW OF SYSTEMS Again, unable to obtain except for found down by family. FAMILY HISTORY Unable to obtain. PHYSICAL EXAMINATION VITAL SIGNS: Again, T-max is 98.5, pulse 85 to 100, blood pressure 92 to 134 over 50s to 80s. He has had about 8 L in and 1765 out. HEENT: His pupils are dilated and fixed. He is orally intubated. He does have maybe some periorbital edema. NECK: Supple. No adenopathy. CARDIAC: He is without a rub. No S3 or S4. LUNGS: Sound fairly clear bilaterally. ABDOMEN: Bowel sounds positive. Mild distention. Nontender and soft. EXTREMITIES: He has no lower extremity swelling. Unit #: [id number] #: [id number] Patient: MARVIN BECK NEUROLOGIC: Again, decreased responsiveness. SKIN: No rashes. : Gómez catheter is in place. DIAGNOSTIC STUDIES LABORATORY RESULTS: Today showed a pH of 7.429, pCO2 of 28, pO2 of 78, on 50%. Sodium is 146, potassium is up to 2.0, chloride is 114, bicarb is 19, BUN and creatinine are 31 and 2.7, albumin of 2, and total bilirubin is 3.2. Lactic acid upon admission was 11.3. Hemoglobin is 11.1, white count 8700, and platelets 90,000. TSH 0.25. CPK last checked was only 689. His urine sodium was 37, potassium 14, and chloride is 21. He had a positive drug screen for benzodiazepines, marijuana, and opiates. UA shows specific gravity of 1.01; he did have some protein repeat, but not initially; 2 to 5 rbc's. To note, his pH was 6.9 when he came in. ASSESSMENT AND PLAN 1. Hypokalemia. This gentleman with severe hypokalemia. Certainly, agree with replacing magnesium and potassium aggressively with protocol, and we will also check a phosphorus level as well. Certainly, I guess theoretically he could have had severe acidosis with a potassium of 4.6 and with correction of his acidosis, it has driven the potassium intracellularly to cause him severe potassium depletion. Also, may be some beta-adrenergic agonist type with his overdose in his resuscitation, etc. His urine potassium is not elevated and suggesting he is not losing it renally oliver. He also has apparently no history of severe diarrhea either. Again, we will just replace it and we will continue to follow closely. 2. Acute kidney injury secondary to post code. Renal function continues to worse, although he is making some urine. We will adjust his IV fluids, but continue the bicarb drip. Repeat a CPK in the morning. Certainly, poor prognosis. 3. Probable anoxic brain injury. 4. Hypernatremia. The patient with increased sodium to 146. We will change his bicarb drip to D5W with 2 amps of bicarb at 125 mL an hour. We will check labs in the morning. Dictated by.Narciso Villarreal/castro TD: 10/10/2016 19:55 JOB #: [id number] CONSULTATION REPORT Page 1 of 1 X Pk Gonzalez MD X CONSULTATION REPORT
--- NOTE | ~2016-10-08 | NM13 ---
[facility] A Service [facility] RADIOLOGY TEXT RESULTS PATIENT: MARVIN TOLENTINO [facility] [birth year] UNIT #: [id number] AGE: [address]: CASH ISABEL V SEX: M ORDER DR: [id number] [facility] [address] [facility]. [place], [place] [address] [id number] I MR#: [id number] Acc #: [id number] NAME: MARVIN TOLENTINO : 1980 SEX: M STUDY DATE/TIME: 10/16/2016 13:00 UNIT: [facility] ROOM: [facility] STUDY DESCRIPTION: NM Brain Imaging Vasc Flow Attending Physician: Cash Isabel M.D. Ordering Physician: Enrike Pizano M.D. Primary Care Physician: No Primary Care Physician MEDICAL IMAGING REPORT This report is preliminary unless electronic signature is present EXAM Nuclear medicine brain study. INDICATIONS Unresponsive patient since 10/08/2016. Observation for brain . PROCEDURE Patient was administered 24 mCi technetium labeled DTPA. Imaging of the brain was performed. COMPARISON STUDIES Head CT from 10/08/2016 FINDINGS There is no brain blood flow identified. IMPRESSION No blood flow to the brain. Findings consistent with brain . Findings were called to the patient's nurse at [facility] at the time of dictation. She voiced that she would relay these findings to the physicians caring for the patient. Dictated by... Bethel Escalona M.D. THIS IS AN ELECTRONICALLY VERIFIED REPORT Bethel Escalona M.D. at 10/17/2016 8:17 AM VIKAD/anila TD: 10/16/2016 14:30 JOB #: [id number] [facility] A Service [facility] RADIOLOGY TEXT RESULTS PATIENT: MARVIN TOLENTINO [facility]ATION: [facility] : 82 UNIT #: [id number] AGE: [address]: CASH ISABEL V SEX: M ORDER DR: MEDICAL IMAGING REPORT Page 1 of 1 COPY
--- NOTE | ~2016-10-08 | CT55 ---
[facility] A Service [facility] RADIOLOGY TEXT RESULTS PATIENT: MARVIN TOLENTINO LOCATION: [address] : [birth year] UNIT #: [id number] AGE: [address]: ELLE MCGOWAN MD SEX: M ORDER DR: [id number] [facility]. [place], [place] [address] [id number] I MR#: [id number] Acc #: [id number] NAME: MARVIN TOLENTINO : 1980 SEX: M STUDY DATE/TIME: 10/08/2016 12:24 UNIT: [facility] ROOM: [facility] STUDY DESCRIPTION: CT Chest W Con Attending Physician: Elle Mcgowan M.D. Ordering Physician: Suman Anthony M.D. Primary Care Physician: No Primary Care Physician MEDICAL IMAGING REPORT This report is preliminary unless electronic signature is present EXAM CT scan of the chest with contrast HISTORY Resuscitated arrest. Patient is on ventilator and is unresponsive. Evaluate for infiltrates. Heroin overdose. COMPARISON Chest x-ray from earlier today. That chest x-ray showed increasing right lung infiltrate. TECHNIQUE This CT exam was performed with one or more of the following radiation dose reduction techniques: automatic control, adjustment of mA and/or kV according to patient size, and iterative reconstruction. FINDINGS Axial 5 mm images were obtained through the chest with IV contrast. The patient was given 100 mL of Isovue 370. There is dense consolidation throughout the right lower lobe and some of the right upper lobe and there is dense consolidation in the posterior left lower lobe. The endotracheal tube is in good position. The aorta is normal in size. There is no mediastinal or hilar adenopathy. Visualized portion of upper abdomen are normal. IMPRESSION 1. Dense consolidation is present throughout the entire right lower lobe and the posterior aspects of the right upper lobe as well as in the posterior aspects of the left lower lobe and these findings may be due to aspiration from the patient's resuscitation. The endotracheal tube is in good position. [facility] Service [facility] RADIOLOGY TEXT RESULTS PATIENT: MARVIN TOLENTINO LOCATION: [facility]23 : 82 UNIT #: [id number] AGE: [address]: ELLE MCGOWAN MD SEX: M ORDER DR: Dictated by... Ronan Huizar M.D. THIS IS AN ELECTRONICALLY VERIFIED REPORT Ronan Huizar M.D. at 10/09/2016 9:36 PM SUKHI/pretty TD: 10/09/2016 03:33 JOB #: [id number] MEDICAL IMAGING REPORT Page 1 of 1 COPY
--- NOTE | ~2016-10-08 | CR72 ---
[facility] A Service of [facility] RADIOLOGY TEXT RESULTS PATIENT: MARVIN TOLENTINO LOCATION: [facility] : 82 UNIT #: [id number] AGE: [address]: CASH ZAMUDIO V SEX: M ORDER DR: [id number] [facility] [address] [facility]. [address] [id number] MR#: [id number] Acc #: [id number] NAME: MARVIN TOLENTINO : 1980 SEX: M STUDY DATE/TIME: 10/13/2016 4:53 UNIT: [facility] ROOM: [facility] STUDY DESCRIPTION: CR Chest Single View Portable Attending Physician: Cash Zamudio M.D. Ordering Physician: Ed Doctor [id number] [facility] Primary Care Physician: Primary Care Physician No MEDICAL IMAGING REPORT This report is preliminary unless electronic signature is present REVISED REPORT EXAM AP portable chest 10/13/2016 HISTORY Resuscitated arrest status post overdose. Respiratory failure on the ventilator. Symptoms began 10/08/2016. COMPARISON AP portable chest 10/12/2016. FINDINGS ET tube remains in the mid thoracic trachea. Right IJ central line and left subclavian approach central line appear stable. Airspace disease changes are present throughout both lungs, right greater left. There appears to be worsening airspace disease particularly within the right upper lobe compared to prior study. Suspected small layering right pleural effusion. IMPRESSION 1. Right greater than left diffuse airspace disease. The airspace disease appears slightly worse in the right upper lobe compared to the prior study. Correlate clinically for worsening pneumonia. 2. Stable appearance of the supporting lines and tubes. No visible pneumothorax. *ORDER MODIFIED* Dictated by... Vivienne Mack M.D. [facility] A Service [facility] RADIOLOGY TEXT RESULTS PATIENT: MARVIN TOLENTINO LOCATION: [facility] : 82 UNIT #: [id number] AGE: [address]: CASH ZAMUDIO V SEX: M ORDER DR: THIS IS AN ELECTRONICALLY VERIFIED REPORT Vivienne Mack M.D. at 10/13/2016 9:49 PM ODALYS/braydon TD: 10/13/2016 06:33 JOB #: [id number] CC: Danay/sd Please Delete MEDICAL IMAGING REPORT Page 1 of 1 COPY
--- NOTE | ~2016-10-08 | US77 ---
[facility] A Service of [facility] RADIOLOGY TEXT RESULTS PATIENT: MARVIN TOLENTINO LOCATION: [address] : [birth year] UNIT #: [id number] AGE: [address]: CASH ISABEL V SEX: M ORDER DR: [id number] [facility] [address] [facility]. [place], [place] [address] [id number] I MR#: [id number] Acc #: [id number] NAME: MARVIN TOLENTINO : 1980 SEX: M STUDY DATE/TIME: 10/10/2016 15:07 UNIT: [facility] ROOM: [facility] STUDY DESCRIPTION: US Kidney Bilateral Complete Attending Physician: Cash Isabel M.D. Ordering Physician: Eleanor Gonzalez M.D. Primary Care Physician: Primary Care Physician No MEDICAL IMAGING REPORT This report is preliminary unless electronic signature is present EXAM Renal ultrasound 10/10/2016 HISTORY Acute renal failure for 2 days. Abnormal renal function tests. Elevated BUN of 31, elevated creatinine of 3.7, abnormally low GFR of 23.1 today. FINDINGS The right kidney measures 10.5 cm, while the left kidney measures 11 cm in longitudinal dimensions. There is no evidence of hydronephrosis or nephrolithiasis. No cystic or solid mass lesions were seen on either kidney. There is normal renal cortical echogenicity. The bladder was empty for the exam and therefore poorly visualized. IMPRESSION 1. Negative renal ultrasound. 2. Images of the bladder are normal. Dictated by... Yan Talbot M.D. THIS IS AN ELECTRONICALLY VERIFIED REPORT Yan Talbot M.D. at 10/11/2016 7:22 AM KRT/javier TD: 10/11/2016 03:58 JOB #: [id number] MEDICAL IMAGING REPORT Page 1 of 1 COPY
--- NOTE | ~2016-10-08 | CO ---
Unit #: [id number] #: [id number] Patient: MARVIN TOLENTINO [id number] [facility] [address] [facility]. [place], [place] [address] [id number] I MR#: [id number] NAME: MARVIN TOLENTINO ROOM: [facility] Age: 36 Sex: M Admission Date: 10/08/2016 : 1980 Attending Physician: Shad Mcgowan M.D. Primary Care Physician: No Primary Care Physician CONSULTATION REPORT CHIEF COMPLAINT Resuscitated cardiac arrest. HISTORY OF PRESENT ILLNESS The patient is a 36-year-old male who does not have a significant past medical history. The patient was initially presented to the emergency department on 10/07/2016 for a drug overdose. Per the patient's sister, she tells me that the patient took 10 Xanax and swallowed a package of heroin. I am unsure of the validity of this story. However, the patient was admitted from 10/07 through 10/08 and was discharged at 1:40 in the morning via wheelchair. The patient was found unresponsive by family, who started CPR and called EMS. The patient was resuscitated by EMS and brought to [facility]. He had a central line placed and remains on mechanical ventilation. His urine drug screen again was positive for benzos, marijuana and opiates as it was on 10/07/2016. His troponin was 0.1. EKG shows normal sinus rhythm with a rate of 81 beats per minute. Cardiology has been consulted for hypotension, and resuscitated arrest. Neurology has been consulted as CT scan shows possible diffuse anoxic brain injury. PAST MEDICAL HISTORY None. PAST SURGICAL HISTORY None. SOCIAL HISTORY Urine drug screen was positive for benzos, marijuana and opiates. FAMILY HISTORY The family denies any family history of coronary artery disease. ALLERGIES No known drug allergies. HOME MEDICATIONS None. REVIEW OF SYSTEMS Unable to complete secondary to mechanical ventilation. Unit #: [id number] #: [id number] Patient: MARVIN TOLENTINO PHYSICAL EXAMINATION GENERAL: The patient is unresponsive on the ventilator. VITALS: Temperature 91.4, heart rate 107, respiratory rate 18, blood pressure 124/82, oxygenating 100% on mechanical ventilation. HEENT: Head is atraumatic, normocephalic. NECK: Supple. Trachea midline. No thyromegaly or lymphadenopathy appreciated. CHEST: Lungs with rhonchi bilaterally. HEART: S1 and S2. Tachycardic. No murmurs, rubs or gallops appreciated. ABDOMEN: Soft, nontender and nondistended. Hypo bowel sounds. SKIN: Appears to be warm, dry and intact. EXTREMITIES: No clubbing, edema or cyanosis. NEUROLOGIC: Unresponsive. DIAGNOSTIC STUDIES LABORATORY: Initial ABGs from 11 o'clock on 10/08/2016, pH 6.96, CO2 54, pO2 78.5, bicarb 12.2. Glucose 181, BUN 16, creatinine 2.5, sodium 143, potassium 4.9, chloride 110, CO2 15, calcium 8.1. White blood cell count 4.8, hemoglobin 11.4, hematocrit 34.6, platelets 164. Urine drug screen positive for benzos, marijuana and opiates. Lactic acid 11.3. ASSESSMENT/PLAN 1. Resuscitated arrest. 2. Acute hypoxic respiratory failure requiring mechanical ventilation. 3. Encephalopathy. Likely anoxic injury. 4. Hypotension. 5. Sinus tachycardia. 6. Acute kidney injury. 7. Polysubstance abuse with urine drug screen positive for benzos, marijuana and opiates. PLAN At this time will trend cardiac enzymes q.6 h. times 3 and check an EKG in the morning. Will check BMP, magnesium and TSH. A STAT 2-D echocardiogram has been ordered and Dr. Flores is aware of this. Further recommendations will be made per Dr. Flores. Dictated by... Helene Arteaga A.P.R.N. for Brennan Flores M.D. AM/mansi TD: 10/09/2016 06:44 JOB #: [id number] CONSULTATION REPORT Page 1 of 1 X Helene Arteaga APRN X CONSULTATION REPORT
--- NOTE | ~2016-10-08 | HP ---
Unit #: [id number] #: [id number] Patient: MARVIN TOLENTINO [id number] [address] [address] [id number] I MR#: [id number] NAME: MARVIN TOLENTINO ROOM: [facility] Age: 36 Sex: M Admission Date: 10/08/2016 : 1980 Attending Physician: Elle Mcgowan M.D. Primary Care Physician: No Primary Care Physician HISTORY AND PHYSICAL CHIEF COMPLAINT Resuscitated arrest. HISTORY OF PRESENT ILLNESS The patient is a 36-year-old -[place] male with a history of drug abuse, brought to the emergency room status post resuscitated arrest. The patient was seen in the ER on October 07 after being found unresponsive. Reportedly patient took 10 Xanax and swallowed a package of heroin. The patient was discharged at 1:40 in the morning of October 08. The patient returned to the ER at 10:48 a.m. via EMS. Found by family unresponsive, who started CPR and called EMS. Patient was probably down for 30 minutes. He received the epinephrine x3. The patient is status post intubated and sedated and unresponsive and is unable to provide any history. PAST MEDICAL HISTORY History of drug abuse. PAST SURGICAL HISTORY None. HOME MEDICATIONS None. FAMILY HISTORY Unable to obtain. REVIEW OF SYMPTOMS Unable to obtain. PHYSICAL EXAMINATION GENERAL APPEARANCE: On examination the patient is lying on a bed not in acute distress. VITAL SIGNS: Temperature is 91.4, pulse 87, respiratory rate 22, blood pressure is 76/51, sating 92% at ventilator. HEENT: Head atraumatic and normocephalic. Pupils dilated and none responsive. NECK: Status post orotracheal intubation. LUNGS: Decreased air entry at the bases. Coarse breath sounds. HEART: Tachycardic. S1, S2, normal intensity. ABDOMEN: Distended. EXTREMITIES: No cyanosis. No clubbing. NEUROLOGIC: Status post intubated and sedation and unable to assess. Unit #: [id number] #: [id number] Patient: MARVIN TOLENTINO DIAGNOSTIC STUDIES LABORATORY DATA: WBC 4.8, hemoglobin 13.3, hematocrit 39.9, platelets 246 and sodium 140, potassium 3.6, chloride 106, bicarb 25, glucose 224, BUN 15, creatinine 1.1, calcium 8.8, AST 23, ALT 25, albumin 4.2. Urine drug screen is positive for the benzodiazepines, marijuana and opiates. Acetaminophen level less than 10, salicylate less than 4. Glucose 171. ABG showed pH of 6.96, pCO2 of 54, pO2 is 78.5, bicarb 12.2, oxygen saturation 88.6 and troponin 0.13 and UA shows negative bacteria, lactic acid is 11.3 and repeat BMP shows sodium 143, potassium 4.9, chloride 110, bicarb 15, glucose 191, BUN 16, creatinine 2.5, AST 765, ALT 1311, total protein 5.3, lipase 36 and lactic acid down 7.1. IMAGING: CT of the head shows diffuse anoxic injury. Chest x-ray shows a possible aspiration pneumonia. ASSESSMENT 1. Resuscitated arrest. 2. Acute respiratory failure. 3. Anoxic brain injury. 4. Septic shock. PLAN Plan to admit the patient to the ICU. Patient will have a critical care consult with Dr. Swift and a cardiology and neurology consult. Patient has a poor prognosis and continue with the pressure support with epinephrine and the Levophed and check the echocardiogram and continue with empiric antibiotics with Zosyn and follow with the septic shock protocol and further recommendations will follow. Dictated by Narciso Gutierrez/fei TD: 10/08/2016 18:53 JOB #: [id number] HISTORY AND PHYSICAL Page 1 of 1 X ELLE MCGOWAN MD X HISTORY AND PHYSICAL
--- NOTE | ~2016-10-08 | CR72 ---
[facility] A Service of [facility] RADIOLOGY TEXT RESULTS PATIENT: MARVIN TOLENTINO LOCATION: [address] : [birth year] UNIT #: [id number] AGE: [address]: SANDOR ISABELUJ V SEX: M ORDER DR: [id number] [facility] [address] [facility] [address] [place], [place] [address] [id number] I MR#: [id number] Acc #: [id number] NAME: MARVIN TOLENTINO : 1980 SEX: M STUDY DATE/TIME: 10/08/2016 19:11 UNIT: [facility] ROOM: [facility] STUDY DESCRIPTION: CR Chest Single View Portable Attending Physician: Shad Mcgowan M.D. Ordering Physician: Ed William Maynard M.D. Primary Care Physician: No Primary Care Physician MEDICAL IMAGING REPORT This report is preliminary unless electronic signature is present EXAM Chest portable 10/08/2016 at 19:11 hours. HISTORY 36-year-old man with history of unwitnessed arrest today, respiratory failure with resuscitation. Seen in emergency room yesterday for heroin overdose. COMPARISON 10/08/2016 15:07 hours. HISTORY Single portable upright view demonstrates stable endotracheal tube with tip 6 cm above the jurgen. Previous left subclavian catheter has been removed and there is no pneumothorax. There is a new right IJ catheter with tip at junction of SVC and right atrium. There are diffuse bilateral airspace changes right greater than left, suggesting edema. Pneumonia and aspiration pneumonia are included in the differential. There is no pneumothorax. IMPRESSION Bilateral airspace changes right greater than left, consistent with edema. Infection and aspiration are included in the differential. There is a right IJ catheter with tip at junction of SVC and right atrium. Left subclavian catheter has been removed. There is no pneumothorax. Endotracheal tube remains with tip 6 cm above the jurgen. Dictated by... Laya Jacinto M.D. THIS IS AN ELECTRONICALLY VERIFIED REPORT Laya Jacinto M.D. at 10/10/2016 8:41 AM SMM/gz [facility] A Service of [facility] & [facility] RADIOLOGY TEXT RESULTS PATIENT: MARVIN TOLENTINO LOCATION: [facility] : [birth year] UNIT #: [id number] AGE: [address]: CASH ISABEL V SEX: M ORDER DR: TD: 10/09/2016 13:08 JOB #: [id number] MEDICAL IMAGING REPORT Page 1 of 1 COPY
[2016-10-08 11:00] LABS: ARTERIAL BLD GAS O2 SATURATION 88.6 % (90.0-100.0); ARTERIAL BLOOD GAS HCO3 12.2 mmol/L; ARTERIAL BLOOD GAS MET HB 1.1 %sat (0.0-2.0)
[2016-10-08 11:02] LABS: ARTERIAL BLOOD GAS ALLEN TEST N; ARTERIAL BLOOD GAS ART SITE RIGHT RADIAL; ARTERIAL BLOOD GAS PCO2 54.1 mmHg (35.0-45.0); ARTERIAL BLOOD GAS PO2 78.5 mmHg (80.0-100); ARTERIAL DRAW? YES
[2016-10-08 11:03] LABS: ARTERIAL BLOOD GAS DELIVERY NON REBREATHER MASK
[2016-10-08 11:21] LABS: URINE SOURCE CLEAN CATCH
[2016-10-08 11:31] LABS: POC - CKMB 7.2 ng/mL (0.0-7.9); POC - TROPONIN 0.13 ng/mL (<=0.05)
[2016-10-08 11:32] LABS: URINE APPEARANCE CLEAR; URINE BILIRUBIN NEG (NEG); URINE BLOOD NEG (NEG); URINE COLOR YELLOW; URINE GLUCOSE NEG (NEG); URINE KETONE NEG (NEG); URINE LEUKOCYTE ESTERASE NEG (NEG); URINE NITRATE NEG (NEG); URINE PROTEIN NEG (NEG); URINE SPECIFIC GRAVITY 1.023 (1.003-1.035); URINE UROBILINOGEN 0.2 MG/DL (NEG)
[2016-10-08 11:38] LABS: CULTURE INDICATED? NO
[2016-10-08 12:14] LABS: AMPHETAMINE NEG (NEG); BARBITURATES NEG (NEG); BENZODIAZEPINES POS (NEG); COCAINE NEG (NEG); MARIJUANA POS (NEG); OPIATES POS (NEG); TRICYCLIC ANTIDEPRESSANTS NEG (NEG); U METHADONE NEG (NEG)
[2016-10-08 12:18] LABS: ALBUMIN SERUM 2.8 g/dL (3.5-5.0); ALKALINE PHOSPHATASE 52 U/L (32-92); ALT (SGPT) 1311 U/L (10-40); AST (SGOT) 765 U/L (10-42); BILIRUBIN, DIRECT 0.2 mg/dL (0.0-0.2); BILIRUBIN,INDIRECT 0.7 mg/dL (0.0-0.9); BILIRUBIN,TOTAL 0.9 mg/dL (0.2-2.0); BLOOD UREA NITROGEN 16 mg/dL (9-23); CALCIUM SERUM 8.1 mg/dL (8.4-10.2); CARBON DIOXIDE 15 mmol/L (22-31); CHLORIDE 110 mmol/L (100-111); CREATININE SERUM 2.5 mg/dL (0.6-1.4); GLOM FILT RATE Estimated 37.2 mL/min (>60); GLUCOSE FASTING 181 mg/dL (70-110); POTASSIUM 4.9 mmol/L (3.5-5.1); PROTEIN TOTAL SERUM 5.3 g/dL (6.0-8.3); SALICYLATE <4.0 mg/dL; SODIUM 143 mmol/L (135-145)
[2016-10-08 12:19] LABS: ACETAMINOPHEN <10 ug/mL; ALCOHOL BLOOD <5 mg/dL ([, 0])
[2016-10-08 12:56] LABS: BASOPHIL% 0.4 % (0-2.5); EOSINOPHIL% 0.5 % (0.0-7.0); HEMATOCRIT 34.6 % (38.0-50.0); HEMOGLOBIN 11.4 gm/dL (13.0-16.0); LYMPHOCYTE# 1.1 X10e3 (1.0-3.5); MEAN CELL VOLUME 88.5 FL (83-96); MEAN CORPUSCULAR HEMOGLOBIN 29.3 PG (28-34); MEAN CORPUSCULAR HGB CONC 33.1 g/dL (30-36); MEAN PLATELET VOLUME 7.5 FL (6.5-11.5); MONOCYTE% 0.7 % (3.0-12.0); NEUTROPHIL# 3.6 X10e3 (1.5-7.1); NEUTROPHIL% 75.4 % (40-75); PLATELET COUNT 164 X10e3 (140-420); RED CELL DISTRIBUTION WIDTH 12.6 % (11.0-15.5); WHITE BLOOD COUNT 4.8 X10e3 (4.0-10.5)
[2016-10-08 12:57] LABS: DIFF IND NO
[2016-10-08 13:05] LABS: ARTERIAL BLD GAS O2 SATURATION 89.2 % (90.0-100.0); ARTERIAL BLOOD GAS ALLEN TEST NORMAL; ARTERIAL BLOOD GAS ART SITE RIGHT RADIAL; ARTERIAL BLOOD GAS CARBOXY HB 1.4 %sat (0.0-9.0); ARTERIAL BLOOD GAS DELIVERY VENTILATOR; ARTERIAL BLOOD GAS HCO3 16.8 mmol/L; ARTERIAL BLOOD GAS MET HB 0.8 %sat (0.0-2.0); ARTERIAL BLOOD GAS PCO2 34.4 mmHg (35.0-45.0); ARTERIAL BLOOD GAS PO2 59.6 mmHg (80.0-100); ARTERIAL BLOOD GAS VENT MODE A/C; ARTERIAL BLOOD GAS pH 7.297 (7.350-7.450); ARTERIAL DRAW? YES
[2016-10-08 13:13] LABS: INR 1.6; PARTIAL THROMBOPLASTIN TIME 43.5 SECONDS (23.5-31.3)
[2016-10-08 14:24] LABS: ARTERIAL BLD GAS O2 SATURATION 83.9 % (90.0-100.0); ARTERIAL BLOOD GAS HCO3 16.5 mmol/L; ARTERIAL BLOOD GAS MET HB 0.9 %sat (0.0-2.0); ARTERIAL BLOOD GAS PCO2 31.8 mmHg (35.0-45.0); ARTERIAL BLOOD GAS pH 7.323 (7.350-7.450)
[2016-10-08 14:25] LABS: ARTERIAL BLOOD GAS ALLEN TEST NORMAL; ARTERIAL BLOOD GAS ART SITE RIGHT RADIAL; ARTERIAL BLOOD GAS DELIVERY VENTILATOR; ARTERIAL BLOOD GAS PO2 48.2 mmHg (80.0-100); ARTERIAL BLOOD GAS VENT MODE A/C; ARTERIAL DRAW? YES
[2016-10-08] MEDS ORDERED: XANAX1 MG PO (18:36)
[2016-10-08 19:54] LABS: MB 63.2 ng/ml
[2016-10-09 01:39] LABS: %MB 13.8 % (0.0-4.0)
[2016-10-09 04:32] LABS: ARTERIAL BLD GAS O2 SATURATION 98.1 % (90.0-100.0); ARTERIAL BLOOD GAS CARBOXY HB 0.2 %sat (0.0-9.0); ARTERIAL BLOOD GAS HCO3 18.8 mmol/L; ARTERIAL BLOOD GAS MET HB 0.9 %sat (0.0-2.0); ARTERIAL BLOOD GAS PCO2 35.8 mmHg (35.0-45.0); ARTERIAL BLOOD GAS pH 7.329 (7.350-7.450)
[2016-10-09 04:58] LABS: ARTERIAL BLOOD GAS ALLEN TEST NORMAL; ARTERIAL BLOOD GAS ART SITE LEFT RADIAL; ARTERIAL BLOOD GAS DELIVERY VENT; ARTERIAL BLOOD GAS VENT MODE AC; ARTERIAL DRAW? YES
[2016-10-09 06:38] LABS: BASOPHIL% 0.6 % (0-2.5); EOSINOPHIL% 0.4 % (0.0-7.0); HEMATOCRIT 42.3 % (38.0-50.0); LYMPHOCYTE% 28.1 % (17.0-45.0); MEAN CELL VOLUME 87.4 FL (83-96); MEAN CORPUSCULAR HEMOGLOBIN 29.7 PG (28-34); MEAN PLATELET VOLUME 8.3 FL (6.5-11.5); MONOCYTE# 0.5 X10e3 (0-1.0); MONOCYTE% 7.1 % (3.0-12.0); NEUTROPHIL# 4.5 X10e3 (1.5-7.1); NEUTROPHIL% 63.8 % (40-75); PLATELET COUNT 222 X10e3 (140-420); RED BLOOD COUNT 4.84 X10e (3.90-5.60); RED CELL DISTRIBUTION WIDTH 13.5 % (11.0-15.5)
[2016-10-09 06:40] LABS: HEMOGLOBIN 14.4 gm/dL (13.0-16.0)
[2016-10-09 06:43] LABS: DIFF IND NO
[2016-10-09 07:36] LABS: MB 96.8 ng/ml
[2016-10-09 10:54] LABS: ALBUMIN SERUM 2.2 g/dL (3.5-5.0); BILIRUBIN,TOTAL 1.8 mg/dL (0.2-2.0); BUN/CREATININE RATIO 6.66; CALCIUM SERUM 7.3 mg/dL (8.4-10.2); CREATININE SERUM 3.3 mg/dL (0.6-1.4); GLOM FILT RATE Estimated 26.6 mL/min (>60); MAGNESIUM 1.3 mg/dL (1.6-3.0); PROTEIN TOTAL SERUM 4.1 g/dL (6.0-8.3)
[2016-10-09 10:57] LABS: POTASSIUM 1.3 mmol/L (3.5-5.1)
[2016-10-09 19:48] LABS: BUN/CREATININE RATIO 7.27; CALCIUM SERUM 6.9 mg/dL (8.4-10.2); CREATININE SERUM 3.3 mg/dL (0.6-1.4); GLOM FILT RATE Estimated 26.6 mL/min (>60); MAGNESIUM 1.7 mg/dL (1.6-3.0)
[2016-10-09 19:49] LABS: POTASSIUM 1.5 mmol/L (3.5-5.1)
[2016-10-09 23:15] LABS: URINE APPEARANCE TURBID; URINE BILIRUBIN NEG (NEG); URINE BLOOD 2+ (NEG); URINE COLOR YELLOW; URINE GLUCOSE NEG (NEG); URINE KETONE NEG (NEG); URINE LEUKOCYTE ESTERASE NEG (NEG); URINE NITRATE NEG (NEG); URINE PROTEIN 2+ (NEG); URINE UROBILINOGEN 0.2 MG/DL (NEG)
[2016-10-09 23:18] LABS: URINE BACTERIA AUWI NEG (NEGATIVE); URINE SQUAMOUS EPITHELIAL CELL MANY /[HPF]; UWBCS1 AUWI 25-50 (0-5)
[2016-10-09 23:30] LABS: POTASSIUM,URINE RANDOM 14 mmol/L; SODIUM URINE RANDOM 37 mmol/L
[2016-10-10 04:13] LABS: ARTERIAL BLD GAS O2 SATURATION 95.1 % (90.0-100.0); ARTERIAL BLOOD GAS CARBOXY HB 0.7 %sat (0.0-9.0); ARTERIAL BLOOD GAS HCO3 18.6 mmol/L; ARTERIAL BLOOD GAS MET HB 1.1 %sat (0.0-2.0); ARTERIAL BLOOD GAS PCO2 28.1 mmHg (35.0-45.0); ARTERIAL BLOOD GAS pH 7.429 (7.350-7.450)
[2016-10-10 04:17] LABS: ARTERIAL BLOOD GAS ALLEN TEST NORMAL; ARTERIAL BLOOD GAS PO2 73.3 mmHg (80.0-100); ARTERIAL DRAW? YES
[2016-10-10 04:18] LABS: ARTERIAL BLOOD GAS ART SITE RIGHT RADIAL; ARTERIAL BLOOD GAS DELIVERY VENT; ARTERIAL BLOOD GAS VENT MODE AC
[2016-10-10 04:20] LABS: BASOPHIL% 0.5 % (0-2.5); EOSINOPHIL# 0.1 X10e3 (0-0.7); EOSINOPHIL% 1.3 % (0.0-7.0); HEMATOCRIT 31.9 % (38.0-50.0); LYMPHOCYTE# 1.2 X10e3 (1.0-3.5); LYMPHOCYTE% 13.3 % (17.0-45.0); MEAN CORPUSCULAR HEMOGLOBIN 29.2 PG (28-34); MEAN CORPUSCULAR HGB CONC 34.8 g/dL (30-36); MEAN PLATELET VOLUME 7.8 FL (6.5-11.5); MONOCYTE# 0.1 X10e3 (0-1.0); MONOCYTE% 1.4 % (3.0-12.0); NEUTROPHIL# 7.3 X10e3 (1.5-7.1); NEUTROPHIL% 83.5 % (40-75); RED BLOOD COUNT 3.79 X10e (3.90-5.60); RED CELL DISTRIBUTION WIDTH 12.9 % (11.0-15.5); WHITE BLOOD COUNT 8.7 X10e3 (4.0-10.5)
[2016-10-10 04:42] LABS: HEMOGLOBIN 11.1 gm/dL (13.0-16.0); MEAN CELL VOLUME 84.1 FL (83-96)
[2016-10-10 04:43] LABS: BILIRUBIN,TOTAL 3.2 mg/dL (0.2-2.0); BUN/CREATININE RATIO 8.37; CALCIUM SERUM 6.8 mg/dL (8.4-10.2); CREATININE SERUM 3.7 mg/dL (0.6-1.4); GLOM FILT RATE Estimated 23.1 mL/min (>60); MAGNESIUM 2.3 mg/dL (1.6-3.0); PROTEIN TOTAL SERUM 3.7 g/dL (6.0-8.3)
[2016-10-10 04:44] LABS: PLATELET COUNT 90 X10e3 (140-420)
[2016-10-10 04:45] LABS: DIFF IND NO
[2016-10-10 20:37] LABS: POTASSIUM 4.9 mmol/L (3.5-5.1)
[2016-10-10 20:38] LABS: PHOSPHOROUS 0.9 mg/dL (2.5-4.6)
[2016-10-11 04:34] LABS: BASOPHIL% 0.2 % (0-2.5); EOSINOPHIL# 0.1 X10e3 (0-0.7); HEMATOCRIT 26.9 % (38.0-50.0); HEMOGLOBIN 9.4 gm/dL (13.0-16.0); LYMPHOCYTE# 0.5 X10e3 (1.0-3.5); LYMPHOCYTE% 7.1 % (17.0-45.0); MEAN CELL VOLUME 83.6 FL (83-96); MEAN CORPUSCULAR HEMOGLOBIN 29.1 PG (28-34); MEAN CORPUSCULAR HGB CONC 34.9 g/dL (30-36); MEAN PLATELET VOLUME 8.1 FL (6.5-11.5); MONOCYTE# 0.2 X10e3 (0-1.0); NEUTROPHIL# 6.8 X10e3 (1.5-7.1); NEUTROPHIL% 88.7 % (40-75); PLATELET COUNT 77 X10e3 (140-420); RED BLOOD COUNT 3.21 X10e (3.90-5.60); RED CELL DISTRIBUTION WIDTH 13.3 % (11.0-15.5); WHITE BLOOD COUNT 7.7 X10e3 (4.0-10.5)
[2016-10-11 04:36] LABS: DIFF IND NO
[2016-10-11 04:36] LABS: ARTERIAL BLD GAS O2 SATURATION 98.1 % (90.0-100.0); ARTERIAL BLOOD GAS CARBOXY HB 0.5 %sat (0.0-9.0); ARTERIAL BLOOD GAS HCO3 20.7 mmol/L; ARTERIAL BLOOD GAS MET HB 0.8 %sat (0.0-2.0); ARTERIAL BLOOD GAS PCO2 24.2 mmHg (35.0-45.0); ARTERIAL BLOOD GAS pH 7.539 (7.350-7.450)
[2016-10-11 04:42] LABS: ARTERIAL BLOOD GAS ALLEN TEST NORMAL; ARTERIAL BLOOD GAS ART SITE LEFT RADIAL; ARTERIAL BLOOD GAS DELIVERY VENT; ARTERIAL BLOOD GAS VENT MODE AC; ARTERIAL DRAW? YES
[2016-10-11 05:43] LABS: BILIRUBIN,TOTAL 5.3 mg/dL (0.2-2.0); BUN/CREATININE RATIO 8.54; CREATININE SERUM 4.8 mg/dL (0.6-1.4); GLOM FILT RATE Estimated 16.9 mL/min (>60); MAGNESIUM 1.8 mg/dL (1.6-3.0); PHOSPHOROUS 1.5 mg/dL (2.5-4.6); PROTEIN TOTAL SERUM 4.1 g/dL (6.0-8.3)
[2016-10-11 05:47] LABS: CALCIUM SERUM 5.8 mg/dL (8.4-10.2)
[2016-10-11 08:24] LABS: BUN/CREATININE RATIO 7.54; CALCIUM SERUM 6.1 mg/dL (8.4-10.2); CREATININE SERUM 5.3 mg/dL (0.6-1.4); POTASSIUM 5.1 mmol/L (3.5-5.1)
[2016-10-11 18:45] LABS: BUN/CREATININE RATIO 6.5; CALCIUM SERUM 7.4 mg/dL (8.4-10.2); GLOM FILT RATE Estimated 48.7 mL/min (>60); MAGNESIUM 1.8 mg/dL (1.6-3.0); PHOSPHOROUS 3.2 mg/dL (2.5-4.6); POTASSIUM 4.5 mmol/L (3.5-5.1)
[2016-10-12 04:03] LABS: BASOPHIL% 0.2 % (0-2.5); EOSINOPHIL# 0.1 X10e3 (0-0.7); EOSINOPHIL% 2.3 % (0.0-7.0); HEMATOCRIT 23.2 % (38.0-50.0); HEMOGLOBIN 7.9 gm/dL (13.0-16.0); LYMPHOCYTE# 0.5 X10e3 (1.0-3.5); LYMPHOCYTE% 11.7 % (17.0-45.0); MEAN CELL VOLUME 84.4 FL (83-96); MEAN CORPUSCULAR HGB CONC 34.3 g/dL (30-36); MEAN PLATELET VOLUME 8.3 FL (6.5-11.5); MONOCYTE# 0.4 X10e3 (0-1.0); MONOCYTE% 9.5 % (3.0-12.0); NEUTROPHIL% 76.3 % (40-75); RED BLOOD COUNT 2.74 X10e (3.90-5.60); RED CELL DISTRIBUTION WIDTH 13.4 % (11.0-15.5); WHITE BLOOD COUNT 3.9 X10e3 (4.0-10.5)
[2016-10-12 04:05] LABS: DIFF IND YES; PLATELET COUNT 54 X10e3 (140-420)
[2016-10-12 04:13] LABS: ARTERIAL BLD GAS O2 SATURATION 98.2 % (90.0-100.0); ARTERIAL BLOOD GAS CARBOXY HB 0.7 %sat (0.0-9.0); ARTERIAL BLOOD GAS HCO3 28.2 mmol/L; ARTERIAL BLOOD GAS MET HB 0.8 %sat (0.0-2.0); ARTERIAL BLOOD GAS PCO2 32.4 mmHg (35.0-45.0); ARTERIAL BLOOD GAS pH 7.547 (7.350-7.450)
[2016-10-12 04:16] LABS: ARTERIAL BLOOD GAS ALLEN TEST NORMAL; ARTERIAL BLOOD GAS ART SITE RIGHT RADIAL; ARTERIAL BLOOD GAS DELIVERY VENT; ARTERIAL BLOOD GAS VENT MODE AC; ARTERIAL DRAW? YES
[2016-10-12 04:23] LABS: BUN/CREATININE RATIO 5.55; CALCIUM SERUM 8.4 mg/dL (8.4-10.2); CREATININE SERUM 0.9 mg/dL (0.6-1.4); GLOM FILT RATE Estimated 127.8 mL/min (>60); MAGNESIUM 1.8 mg/dL (1.6-3.0); PHOSPHOROUS 1.8 mg/dL (2.5-4.6); POTASSIUM 4.1 mmol/L (3.5-5.1); PROTEIN TOTAL SERUM 4.4 g/dL (6.0-8.3)
[2016-10-12 04:30] LABS: HYPOCHROMIA SL; PLATELET ESTIMATE DECREASED (NORMAL); SPHEROCYTE SL
[2016-10-12 04:31] LABS: POIKILOCYTOSIS SL
[2016-10-12 12:52] LABS: CALCIUM SERUM 8.7 mg/dL (8.4-10.2); CARBON DIOXIDE 28 mmol/L (22-31); CHLORIDE 109 mmol/L (100-111); CREATININE SERUM 0.7 mg/dL (0.6-1.4); GLOM FILT RATE Estimated 141.8 mL/min (>60); GLUCOSE FASTING 76 mg/dL (70-110); MAGNESIUM 1.8 mg/dL (1.6-3.0); PHOSPHOROUS 1.7 mg/dL (2.5-4.6); POTASSIUM 3.8 mmol/L (3.5-5.1); SODIUM 140 mmol/L (135-145)
[2016-10-12 12:55] LABS: BLOOD UREA NITROGEN <5 mg/dL (9-23); BUN/CREATININE RATIO 7.14
[2016-10-12 21:00] LABS: CALCIUM SERUM 8.9 mg/dL (8.4-10.2); CARBON DIOXIDE 28 mmol/L (22-31); CHLORIDE 106 mmol/L (100-111); CREATININE SERUM 0.5 mg/dL (0.6-1.4); GLOM FILT RATE Estimated 162.8 mL/min (>60); GLUCOSE FASTING 70 mg/dL (70-110); MAGNESIUM 1.8 mg/dL (1.6-3.0); PHOSPHOROUS 1.3 mg/dL (2.5-4.6); POTASSIUM 3.6 mmol/L (3.5-5.1); SODIUM 139 mmol/L (135-145)
[2016-10-12 21:01] LABS: BLOOD UREA NITROGEN <5 mg/dL (9-23)
[2016-10-13 04:01] LABS: ARTERIAL BLOOD GAS CARBOXY HB 1.1 %sat (0.0-9.0); ARTERIAL BLOOD GAS HCO3 28.7 mmol/L; ARTERIAL BLOOD GAS PCO2 39.9 mmHg (35.0-45.0); ARTERIAL BLOOD GAS PO2 84.2 mmHg (80.0-100); ARTERIAL BLOOD GAS pH 7.465 (7.350-7.450)
[2016-10-13 04:11] LABS: ARTERIAL DRAW? YES
[2016-10-13 04:12] LABS: ARTERIAL BLOOD GAS ART SITE RIGHT BRACHIAL; ARTERIAL BLOOD GAS DELIVERY VENT; ARTERIAL BLOOD GAS VENT MODE AC
[2016-10-13 06:01] LABS: BASOPHIL% 0.2 % (0-2.5); EOSINOPHIL# 0.1 X10e3 (0-0.7); EOSINOPHIL% 1.8 % (0.0-7.0); HEMATOCRIT 23.6 % (38.0-50.0); HEMOGLOBIN 7.9 gm/dL (13.0-16.0); LYMPHOCYTE# 0.6 X10e3 (1.0-3.5); LYMPHOCYTE% 9.8 % (17.0-45.0); MEAN CELL VOLUME 86.2 FL (83-96); MEAN CORPUSCULAR HEMOGLOBIN 28.9 PG (28-34); MEAN CORPUSCULAR HGB CONC 33.6 g/dL (30-36); MEAN PLATELET VOLUME 8.7 FL (6.5-11.5); MONOCYTE# 0.8 X10e3 (0-1.0); MONOCYTE% 12.2 % (3.0-12.0); NEUTROPHIL# 4.7 X10e3 (1.5-7.1); RED BLOOD COUNT 2.74 X10e (3.90-5.60); RED CELL DISTRIBUTION WIDTH 13.9 % (11.0-15.5)
[2016-10-13 06:13] LABS: ALBUMIN SERUM 1.9 g/dL (3.5-5.0); ALKALINE PHOSPHATASE 93 U/L (32-92); ALT (SGPT) 437 U/L (10-40); AST (SGOT) 341 U/L (10-42); BILIRUBIN,TOTAL 7.5 mg/dL (0.2-2.0); CALCIUM SERUM 7.9 mg/dL (8.4-10.2); CARBON DIOXIDE 27 mmol/L (22-31); CHLORIDE 107 mmol/L (100-111); CREATININE SERUM 0.4 mg/dL (0.6-1.4); GLOM FILT RATE Estimated 178.4 mL/min (>60); GLUCOSE FASTING 68 mg/dL (70-110); MAGNESIUM 1.7 mg/dL (1.6-3.0); POTASSIUM 4.1 mmol/L (3.5-5.1); PROTEIN TOTAL SERUM 4.6 g/dL (6.0-8.3); SODIUM 139 mmol/L (135-145)
[2016-10-13 06:25] LABS: WHITE BLOOD COUNT 6.2 X10e3 (4.0-10.5)
[2016-10-13 06:26] LABS: DIFF IND NO; PLATELET COUNT 41 X10e3 (140-420)
[2016-10-13 06:45] LABS: BLOOD UREA NITROGEN <5 mg/dL (9-23)
[2016-10-13 06:47] LABS: CPK (CREATINE PHOSPHOKINASE) 9866 IU/L (36-174)
[2016-10-13 08:05] LABS: HA AB IGM (HEPPAN) Nonreactive (()); HB CORE AB IGM (HEPPAN) Nonreactive (Nonreactive); HB S AG (HEPPAN) Nonreactive (Nonreactive); HEP C AB (HEPPAN) Nonreactive (Nonreactive); HEP C AB SIGNAL TO CUTOFF 0.17 ratio (<1.00)
[2016-10-13 17:21] LABS: ALBUMIN SERUM 1.9 g/dL (3.5-5.0); ALKALINE PHOSPHATASE 118 U/L (32-92); ALT (SGPT) 401 U/L (10-40); CALCIUM SERUM 7.4 mg/dL (8.4-10.2); CARBON DIOXIDE 28 mmol/L (22-31); CHLORIDE 105 mmol/L (100-111); CREATININE SERUM 0.4 mg/dL (0.6-1.4); GLOM FILT RATE Estimated 178.4 mL/min (>60); GLUCOSE FASTING 69 mg/dL (70-110); MAGNESIUM 1.8 mg/dL (1.6-3.0); PHOSPHOROUS 1.3 mg/dL (2.5-4.6); POTASSIUM 3.7 mmol/L (3.5-5.1); PROTEIN TOTAL SERUM 4.9 g/dL (6.0-8.3); SODIUM 139 mmol/L (135-145)
[2016-10-13 17:47] LABS: AST (SGOT) 343 U/L (10-42); BLOOD UREA NITROGEN <5 mg/dL (9-23)
[2016-10-14 05:52] LABS: BASOPHIL% 0.2 % (0-2.5); EOSINOPHIL# 0.1 X10e3 (0-0.7); EOSINOPHIL% 1.6 % (0.0-7.0); HEMATOCRIT 22.9 % (38.0-50.0); HEMOGLOBIN 7.8 gm/dL (13.0-16.0); LYMPHOCYTE# 0.8 X10e3 (1.0-3.5); MEAN CELL VOLUME 86.4 FL (83-96); MEAN CORPUSCULAR HEMOGLOBIN 29.4 PG (28-34); MONOCYTE% 10.9 % (3.0-12.0); NEUTROPHIL# 7.5 X10e3 (1.5-7.1); NEUTROPHIL% 79.3 % (40-75); RED BLOOD COUNT 2.66 X10e (3.90-5.60); RED CELL DISTRIBUTION WIDTH 13.9 % (11.0-15.5)
[2016-10-14 05:56] LABS: WHITE BLOOD COUNT 9.5 X10e3 (4.0-10.5)
[2016-10-14 05:58] LABS: PLATELET COUNT 31 X10e3 (140-420)
[2016-10-14 05:59] LABS: DIFF IND NO
[2016-10-14 07:04] LABS: ALBUMIN SERUM 1.7 g/dL (3.5-5.0); BILIRUBIN,TOTAL 9.8 mg/dL (0.2-2.0); BUN/CREATININE RATIO 7.33; CREATININE SERUM 1.5 mg/dL (0.6-1.4); GLOM FILT RATE Estimated 68.9 mL/min (>60); MAGNESIUM 2.3 mg/dL (1.6-3.0); PHOSPHOROUS 2.7 mg/dL (2.5-4.6); PROTEIN TOTAL SERUM 4.5 g/dL (6.0-8.3)
[2016-10-14 07:06] LABS: POTASSIUM 2.3 mmol/L (3.5-5.1)
[2016-10-14 14:26] LABS: BUN/CREATININE RATIO 7.39; CALCIUM SERUM 7.7 mg/dL (8.4-10.2); CREATININE SERUM 2.3 mg/dL (0.6-1.4); GLOM FILT RATE Estimated 41.1 mL/min (>60); MAGNESIUM 2.4 mg/dL (1.6-3.0); PHOSPHOROUS 4.3 mg/dL (2.5-4.6); POTASSIUM 4.6 mmol/L (3.5-5.1)
[2016-10-15 03:57] LABS: ARTERIAL BLD GAS O2 SATURATION 97.1 % (90.0-100.0); ARTERIAL BLOOD GAS CARBOXY HB 1.5 %sat (0.0-9.0); ARTERIAL BLOOD GAS HCO3 25.1 mmol/L; ARTERIAL BLOOD GAS MET HB 1.4 %sat (0.0-2.0); ARTERIAL BLOOD GAS PCO2 37.4 mmHg (35.0-45.0); ARTERIAL BLOOD GAS pH 7.435 (7.350-7.450)
[2016-10-15 03:59] LABS: ARTERIAL BLOOD GAS ALLEN TEST NORMAL; ARTERIAL BLOOD GAS ART SITE RIGHT RADIAL; ARTERIAL BLOOD GAS DELIVERY VENT; ARTERIAL BLOOD GAS VENT MODE A/C; ARTERIAL DRAW? YES
[2016-10-15 06:36] LABS: INR 1.2; PROTHROMBIN TIME (PATIENT) 13.6 SECONDS (10.0-11.7)
[2016-10-15 07:24] LABS: ALBUMIN SERUM 1.6 g/dL (3.5-5.0); BILIRUBIN,TOTAL 16.2 mg/dL (0.2-2.0); BUN/CREATININE RATIO 7.5; CALCIUM SERUM 7.9 mg/dL (8.4-10.2); CREATININE SERUM 3.6 mg/dL (0.6-1.4); GLOM FILT RATE Estimated 23.9 mL/min (>60); MAGNESIUM 2.5 mg/dL (1.6-3.0); PHOSPHOROUS 4.4 mg/dL (2.5-4.6); POTASSIUM 3.9 mmol/L (3.5-5.1); PROTEIN TOTAL SERUM 4.6 g/dL (6.0-8.3)
[2016-10-16 05:04] LABS: HEMATOCRIT 18.8 % (38.0-50.0); MEAN CELL VOLUME 86.9 FL (83-96); MEAN CORPUSCULAR HEMOGLOBIN 30.2 PG (28-34); MEAN CORPUSCULAR HGB CONC 34.7 g/dL (30-36); MEAN PLATELET VOLUME 8.8 FL (6.5-11.5); RED BLOOD COUNT 2.16 X10e (3.90-5.60); RED CELL DISTRIBUTION WIDTH 13.5 % (11.0-15.5); WHITE BLOOD COUNT 10.9 X10e3 (4.0-10.5)
[2016-10-16 05:07] LABS: HEMOGLOBIN 6.5 gm/dL (13.0-16.0)
[2016-10-16 06:45] LABS: ALBUMIN SERUM 1.5 g/dL (3.5-5.0); BILIRUBIN,TOTAL 17.8 mg/dL (0.2-2.0); BUN/CREATININE RATIO 8.8; CALCIUM SERUM 7.7 mg/dL (8.4-10.2); CREATININE SERUM 2.5 mg/dL (0.6-1.4); GLOM FILT RATE Estimated 37.2 mL/min (>60); POTASSIUM 4.1 mmol/L (3.5-5.1); PROTEIN TOTAL SERUM 4.2 g/dL (6.0-8.3)
== END 2016-10-16 13:45 | disposition expired | DRG 917 ==
LOC: CED 10:48 → CEDOF 13:50 → CED 16:57 → CEDOF 16:57 → CICCU3 16:57 → CEDOF 17:57 → CICCU3 10-10 08:27
PROVIDERS: Emergency Medicine; Internal Medicine; Internal Medicine Cardiovascular Disease; Internal Medicine Nephrology; Internal Medicine Pulmonary Disease; Orthopaedic Surgery
PROC: 5A1955Z Respiratory Ventilation, Greater than 96 Consecutive Hours (ICD-10-PCS; principal; 2016-10-08)
PROC: 30243N1 Transfusion of Nonautologous Red Blood Cells into Central Vein, Percutaneous Approach (ICD-10-PCS; 2016-10-08)
PROC: 5A1D00Z (ICD-10-PCS; 2016-10-08)
PROC: 05HM33Z Insertion of Infusion Device into Right Internal Jugular Vein, Percutaneous Approach (ICD-10-PCS; 2016-10-08)
PROC: B24BZZZ Ultrasonography of Heart with Aorta (ICD-10-PCS; 2016-10-08)
PROC: 05H633Z Insertion of Infusion Device into Left Subclavian Vein, Percutaneous Approach (ICD-10-PCS; 2016-10-09)
PROC: 05H633Z Insertion of Infusion Device into Left Subclavian Vein, Percutaneous Approach (ICD-10-PCS; 2016-10-11)
DX: T40.1X1A Poisoning by heroin, accidental (unintentional), initial encounter (principal); J96.01 Acute respiratory failure with hypoxia; N17.0 Acute kidney failure with tubular necrosis; K72.00 Acute and subacute hepatic failure without coma; I21.4 Non-ST elevation (NSTEMI) myocardial infarction; A41.9 Sepsis, unspecified organism; J69.0 Pneumonitis due to inhalation of food and vomit; G93.1 Anoxic brain damage, not elsewhere classified; R65.21 Severe sepsis with septic shock; E87.0 Hyperosmolality and hypernatremia; E87.2 Acidosis; M62.82 Rhabdomyolysis; T42.4X1A Poisoning by benzodiazepines, accidental (unintentional), initial encounter; Y92.009 Unspecified place in unspecified non-institutional (private) residence as the place of occurrence of the external cause; F12.10 Cannabis abuse, uncomplicated; F11.10 Opioid abuse, uncomplicated; F13.10 Sedative, hypnotic or anxiolytic abuse, uncomplicated; E87.6 Hypokalemia; Z66 Do not resuscitate
CPT/HCPCS: 36415; 36600; 51702; 70450; 71010; 71260; 76770; 78610; 80048; 80053; 80061; 80074; 80076; 80307; 81003; 82436; 82550; 82553; 82803; 82947; 83605; 83690; 83735; 84100; 84132; 84133; 84300; 84443; 84484; 85025; 85027; 85610; 85730; 86850; 86900; 86901; 86923; 87040; 87070; 87205; 87806; 93005; 93306; 94002; 94003; 94640; 94761; 96365; 96366; 96375; 99291; 99292; A9539; C9113; G0480; J0330; J0610; J1650; J2370; J2543; J3475; J7060; P9016; Q4081; Q9967